=== PATIENT | female | born 1955 | race African-American/Black ===

== ENCOUNTER 2019-03-01 13:25 | Inpatient (IN) | payer MEDICAID ==
[~2019-03-01] VITALS: Ht 170.2 cm; Wt 51.7 kg
[2019-03-01] MEDS ORDERED: ALBUTEROL (0.083%) 2.5MG/3ML NEB HHN STA ×2 (13:48→15:50)
[2019-03-01] MEDS ORDERED: IPRATROPIUM BROMIDE (0.02%) 0.5MG/2.5ML NEB HHN STA (13:48)
[2019-03-01] MEDS ORDERED: MAGNESIUM 2 G PREMIX 50 ML IV STA (13:48)
[2019-03-01] MEDS ORDERED: METHYLPREDNISOLONE SOD SUCC 125 MG/2 ML VIAL IV STA (13:48)
[2019-03-01] MEDS ORDERED: SODIUM CHLORIDE 0.9% 1,000 ML IV ONE (14:05)
[2019-03-01 14:41] LABS: CHLORIDE 106 mEq/L (98-107)
[2019-03-01 14:47] LABS: HEMATOCRIT. 40.5 % (36.0-48.0); HEMOGLOBIN. 13.7 g/dL (12.0-16.0); MEAN CORPUSCULAR HEMOGLOBIN 33.4 pg (28.0-32.0); MEAN CORPUSCULAR VOLUME 98.8 fL (81.0-99.0); MEAN PLATELET VOLUME 8.7 fl (7.4-10.4); PLATELET 151 x1000/uL (130-400); RED BLOOD CELL COUNT 4.09 mill/uL (4.2-5.4)
[2019-03-01 15:35] LABS: PLATELET ESTIMATE NORMAL
[2019-03-01] MEDS ORDERED: DOCUSATE SODIUM 100MG CAPSULE PO PRN (19:00)
[2019-03-01] MEDS ORDERED: IPRATROPIUM/ALBUTEROL 0.5-3(2.5)MG/3ML NEB HHN PRN (19:00)
[2019-03-01] MEDS ORDERED: ACETAMINOPHEN 325MG TABLET PO PRN (19:00)
[2019-03-01] MEDS ORDERED: CLONIDINE 0.1MG TABLET PO PRN (19:00)
[2019-03-01] MEDS ORDERED: ONDANSETRON HCL 4MG/2ML INJ IV PRN (19:00)
[2019-03-01] MEDS ORDERED: HYDROCODONE/ACETAMINOPHEN 5/325MG TABLET PO PRN (19:00)
[2019-03-01] MEDS ORDERED: GUAIFENESIN-DM 200MG-20MG/10ML UDC PO PRN (19:00)
[2019-03-01] MEDS ORDERED: LORAZEPAM 0.5MG TABLET PO PRN (19:00)
[2019-03-01 22:30] VITALS: BP 142/94
[2019-03-02] VITALS: BP 140/90
[2019-03-02] MEDS: METHYLPREDNISOLONE SOD SUCC 40 MG/ML VIAL IV SCH ×3 (02:36→22:58)
[2019-03-02 04:00] VITALS: BP 138/90
[2019-03-02] MEDS ORDERED: LISI2.5T47 MT (04:42)
[2019-03-02] MEDS ORDERED: OMEP20TA15 MT (04:42)
[2019-03-02] MEDS ORDERED: ELVI1TAB3 MT (04:42)
[2019-03-02] MEDS ORDERED: OXYC-662 MT (04:42)
[2019-03-02] MEDS ORDERED: ARIP2TAB3 MT (04:42)
[2019-03-02 07:00] LABS: BASOPHILS % 0.4 % (0.0-2.0); HEMATOCRIT. 42.6 % (36.0-48.0); HEMOGLOBIN. 14.5 g/dL (12.0-16.0); LYMPHOCYTES % 16.6 % (20.0-50.0); MEAN CORPUSCULAR HEMOGLOBIN 33.5 pg (28.0-32.0); MEAN CORPUSCULAR VOLUME 98.5 fL (81.0-99.0); MONOCYTES % 7.1 % (2.0-8.0); NEUTROPHILS % 75.9 % (40.0-76.0); PLATELET 150 x1000/uL (130-400); RED BLOOD CELL COUNT 4.32 mill/uL (4.2-5.4); RED CELL DISTRIBUTION WIDTH 14.2 % (11.6-14.6)
[2019-03-02 07:10] LABS: CHLORIDE 104 mEq/L (98-107)
[2019-03-02 07:30] LABS: LDL CHOLESTEROL 101 mg/dL (5-100)
[2019-03-02 07:34] LABS: HDL CHOLESTEROL 83 mg/dL (40-59)
[2019-03-02 08:00] VITALS: BP 156/103
[2019-03-02] MEDS ORDERED: BUDESONIDE 0.5MG/2ML NEB HHN SCH (08:30)
[2019-03-02] MEDS ORDERED: OMEPRAZOLE 20MG CAPSULE EXTENDED RELEASE PO SCH (08:30)
[2019-03-02 08:31] LABS: *BARBITURATES SCREEN URINE NEGATIVE (NEGATIVE)
[2019-03-02 08:32] LABS: *AMPHETAMINES SCREEN URINE NEGATIVE (NEGATIVE); *BENZODIAZEPINES SCREEN URINE NEGATIVE (NEGATIVE); *COCAINE SCREEN URINE PRESUMTIVE POSITIVE (NEGATIVE); METHADONE URINE SCREEN NEGATIVE (NEGATIVE); OPIATES URINE SCREEN NEGATIVE (NEGATIVE); PHENCYCLIDINE URINE SCREEN NEGATIVE (NEGATIVE)
[2019-03-02 08:33] LABS: CANNABINOID URINE SCREEN NEGATIVE (NEGATIVE)
[2019-03-02] MEDS ORDERED: LORATADINE 10MG TABLET PO SCH (09:00)
[2019-03-02] MEDS: LISINOPRIL 2.5MG TABLET PO SCH (09:10)
[2019-03-02] MEDS: FAMOTIDINE 20MG TABLET PO SCH ×2 (09:10→22:58)
[2019-03-02] MEDS: NICOTINE 7MG PATCH TD SCH (09:11)
[2019-03-02] MEDS: OXYCODONE HCL 5MG TABLET PO PRN (13:00)
[2019-03-02] MEDS ORDERED: BENZ1TAB7 MT (13:35)
[2019-03-02] MEDS: BENZTROPINE MESYLATE 1MG TABLET PO SCH (16:52)
[2019-03-02] MEDS: AZITHROMYCIN 500 MG TABLET PO SCH (16:52)
[2019-03-02] MEDS: [UNRECOGNIZED DRUG - MIXTURE] PO SCH (16:54)
[2019-03-02] MEDS: ARIPIPRAZOLE 2MG TABLET PO SCH (16:55)
[2019-03-02] MEDS ORDERED: MONTELUKAST SODIUM 10MG TABLET PO SCH (17:00)
[2019-03-02 20:00] VITALS: BP 139/81
[2019-03-02] MEDS: IPRATROPIUM/ALBUTEROL 0.5-3(2.5)MG/3ML NEB HHN SCH (20:21)
[2019-03-03] VITALS: BP 128/85
[2019-03-03] MEDS: IPRATROPIUM/ALBUTEROL 0.5-3(2.5)MG/3ML NEB HHN SCH ×4 (01:50→20:00)
[2019-03-03 04:00] VITALS: BP 155/101
[2019-03-03] MEDS: METHYLPREDNISOLONE SOD SUCC 40 MG/ML VIAL IV SCH ×3 (04:13→17:43)
[2019-03-03 08:00] VITALS: BP 153/97
[2019-03-03] MEDS: FAMOTIDINE 20MG TABLET PO SCH ×2 (08:54→20:50)
[2019-03-03] MEDS: AZITHROMYCIN 500 MG TABLET PO SCH (08:54)
[2019-03-03] MEDS: ARIPIPRAZOLE 2MG TABLET PO SCH (08:54)
[2019-03-03] MEDS: [UNRECOGNIZED DRUG - MIXTURE] PO SCH (08:54)
[2019-03-03] MEDS: NICOTINE 7MG PATCH TD SCH (08:55)
[2019-03-03] MEDS: LISINOPRIL 2.5MG TABLET PO SCH (08:55)
[2019-03-03] MEDS: BENZTROPINE MESYLATE 1MG TABLET PO SCH (08:55)
[2019-03-03 11:59] VITALS: BP 154/90
[2019-03-03] MEDS ORDERED: DIPHENHYDRAMINE 25MG CAPSULE PO PRN (14:15)
[2019-03-03 16:00] VITALS: BP 136/91
[2019-03-03] MEDS: OXYCODONE HCL 5MG TABLET PO PRN (23:15)
[2019-03-04] VITALS: BP 147/100
[2019-03-04] MEDS: IPRATROPIUM/ALBUTEROL 0.5-3(2.5)MG/3ML NEB HHN SCH ×3 (01:02→13:50)
[2019-03-04 04:00] VITALS: BP 131/95
[2019-03-04 07:48] LABS: HEMATOCRIT. 41.2 % (36.0-48.0); HEMOGLOBIN. 13.6 g/dL (12.0-16.0); MEAN CORPUSCULAR HEMOGLOBIN 32.9 pg (28.0-32.0); MEAN CORPUSCULAR VOLUME 99.7 fL (81.0-99.0); MEAN PLATELET VOLUME 9.6 fl (7.4-10.4); PLATELET 173 x1000/uL (130-400); RED BLOOD CELL COUNT 4.13 mill/uL (4.2-5.4); RED CELL DISTRIBUTION WIDTH 14.5 % (11.6-14.6)
[2019-03-04 07:50] LABS: CHLORIDE 106 mEq/L (98-107)
[2019-03-04 08:00] VITALS: BP 148/94
[2019-03-04] MEDS: AZITHROMYCIN 500 MG TABLET PO SCH (09:58)
[2019-03-04] MEDS: ARIPIPRAZOLE 2MG TABLET PO SCH (10:02)
[2019-03-04] MEDS: FAMOTIDINE 20MG TABLET PO SCH (10:02)
[2019-03-04] MEDS: BENZTROPINE MESYLATE 1MG TABLET PO SCH (10:02)
[2019-03-04] MEDS: METHYLPREDNISOLONE SOD SUCC 40 MG/ML VIAL IV SCH (10:02)
[2019-03-04] MEDS: NICOTINE 7MG PATCH TD SCH (10:03)
[2019-03-04] MEDS: [UNRECOGNIZED DRUG - MIXTURE] PO SCH (10:03)
[2019-03-04 10:49] LABS: PLATELET ESTIMATE NORMAL
[2019-03-04] MEDS: LISINOPRIL 2.5MG TABLET PO SCH (11:35)
[2019-03-04 12:00] VITALS: BP 128/89
[2019-03-04] MEDS ORDERED: AZIT500T5 PO (12:53)
[2019-03-04] MEDS ORDERED: ALBU6.7H INH (12:54)
[2019-03-04 16:00] VITALS: BP 128/89
== END 2019-03-04 16:45 | disposition home or self-care (01) | DRG 816 ==
LOC: ER 13:25 → 8WST 16:21 → ENRESERV 21:18
PROVIDERS: ADMIT Internal Medicine; ATTEND Internal Medicine
DX: T59.91XA Toxic effect of unspecified gases, fumes and vapors, accidental (unintentional), initial encounter (principal); J96.00 Acute respiratory failure, unspecified whether with hypoxia or hypercapnia; J44.1 Chronic obstructive pulmonary disease with (acute) exacerbation; J68.0 Bronchitis and pneumonitis due to chemicals, gases, fumes and vapors; F20.9 Schizophrenia, unspecified; R25.1 Tremor, unspecified; K21.9 Gastro-esophageal reflux disease without esophagitis; F19.10 Other psychoactive substance abuse, uncomplicated; D72.821 Monocytosis (symptomatic); F17.200 Nicotine dependence, unspecified, uncomplicated; E44.1 Mild protein-calorie malnutrition; J20.9 Acute bronchitis, unspecified; J44.0 Chronic obstructive pulmonary disease with (acute) lower respiratory infection; F14.10 Cocaine abuse, uncomplicated; I10 Essential (primary) hypertension; E78.5 Hyperlipidemia, unspecified; F17.210 Nicotine dependence, cigarettes, uncomplicated; F15.10 Other stimulant abuse, uncomplicated; Z60.2 Problems related to living alone; Z79.899 Other long term (current) drug therapy; Z88.0 Allergy status to penicillin; Z68.1 Body mass index [BMI] 19.9 or less, adult; Z71.51 Drug abuse counseling and surveillance of drug abuser; Y92.89 Other specified places as the place of occurrence of the external cause
CPT/HCPCS: 36415; 71045; 80048; 80061; 80305; 83036; 83880; 84484; 85379; 93005; 93306; 93970; 94640; 94644; 99285; J2920; J2930; J3475; J7030; J7611; J7620